=== PATIENT | male | born 1995 | race African-American/Black ===

== ENCOUNTER 2020-08-03 21:00 | Inpatient (IN) | payer BC, OTHER ==
[~2020-08-03] VITALS: Ht 188 cm; Wt 108.9 kg
[~2020-08-03 21:00] MED LIST: NOHOMEMEDICATIONS
[2020-08-03 21:20] VITALS: BP 131/89
[2020-08-03 21:42] LABS: ABSOLUTE NEUTROPHILS 15.2 thou/uL (1.4-8.2); BASOPHILS 0.3 % (0.0-2.0); EOSINOPHILS 0.7 % (0.0-3.0); HEMOGLOBIN 15.1 gm/dL (14.0-18.0); LYMPHOCYTES 8.6 % (24.0-44.0); MCH 28.4 pg (26.0-34.0); MCHC 33.5 g/dL (28.0-37.0); MCV 84.7 fL (80.0-100.0); MONOCYTES 7.1 % (1.0-8.0); PLATELET COUNT 242 thou/uL (150-400); POLYS 83.3 % (36.0-66.0); RBC 5.31 mil/uL (4.50-6.00); RDW 12.7 % (10.5-14.5); WBC 18.2 thou/uL (4.0-11.0)
[2020-08-03 22:00] LABS: ALBUMIN 4.1 g/dL (3.4-5.0); ANION GAP 8 mmol/L (7-16); BUN 13 mg/dL (7-18); CALCIUM 9.2 mg/dL (8.5-10.1); CHLORIDE 102 mmol/L (98-107); CO2 29 mmol/L (21-32); CREATININE 1.3 mg/dL (0.7-1.3); DIRECT BILIRUBIN < 0.1 mg/dL (<0.1-0.2); GLUCOSE 107 mg/dL (74-106); LIPASE 56 U/L (73-393); POTASSIUM 4.2 mmol/L (3.5-5.1); SGOT 25 U/L (15-37); SGPT 42 U/L (16-63); SODIUM 139 mmol/L (136-145); TOTAL BILIRUBIN 0.4 mg/dL (0.2-1.0); TOTAL PROTEIN 8.6 g/dL (6.4-8.2)
[2020-08-03 22:45] LABS: URINE BILIRUBIN NEGATIVE (Negative); URINE BLOOD NEGATIVE (Negative); URINE CLARITY CLEAR; URINE COLOR YELLOW; URINE GLUCOSE-RANDOM* NEGATIVE (Negative); URINE KETONES NEGATIVE (Negative); URINE LEUKOCYTES-REFLEX NEGATIVE (Negative); URINE NITRITE-REFLEX NEGATIVE (Negative); URINE PROTEIN (DIPSTICK) NEGATIVE (Negative); URINE UROBILINOGEN 0.2 E.U./dl (0.2-1.0)
[2020-08-03 23:02] VITALS: BP 134/72
[2020-08-03 23:11] VITALS: BP 135/79
[2020-08-03 23:32] VITALS: BP 139/63
--- NOTE | 2020-08-04 00:24 | NUR ---
PT WAS ADMITTED TO THE UNIT FROM THE ER IN A STABLE CONDITION.PT DENIED PAIN ON ADMISSION.EDUCATION,HX AND ASSSESSMENT COMPLETED.CELLULITIS TO HIS L LEG,RED,ABRAISON,SWOLLEN AND WARM TO TOUCH.PT ABLE TO BEAR WT TO HIS LLE,HOPS SOMETIMES TO THE BR,OFFERED URINAL PT DECLINED PRFERS TO GO TO BR.PT AFEBRILE ON ADMISSION.PT STARTED ON IV ABX AND IVF,GALLITO WELL.PT ABLE TO MAKE HIS NEEDS KNOWN.CALL LIGHT WITHIN REACH.
[2020-08-04 05:16] LABS: HEMATOCRIT 43.4 % (42.0-52.0); HEMOGLOBIN 13.9 gm/dL (14.0-18.0); MCH 27.4 pg (26.0-34.0); MCHC 32.1 g/dL (28.0-37.0); MCV 85.3 fL (80.0-100.0); RBC 5.08 mil/uL (4.50-6.00); RDW 12.7 % (10.5-14.5)
[2020-08-04 05:28] LABS: CALCIUM 8.8 mg/dL (8.5-10.1); CREATININE 1.4 mg/dL (0.7-1.3)
[2020-08-04 07:31] VITALS: BP 114/62
[2020-08-04 12:00] VITALS: BP 136/68
--- NOTE | 2020-08-04 12:26 | NUR ---
PT ADMITTED RELATED TO CELLULITIS AND LEUKOCYTOSIS. CM REVIEWED CHART AND SPOKE WITH CARE TEAM. CM MET WITH PT AND SPOUSE AT BEDSIDE THIS DAY. PT APPEARED TO BE A&O X4. CM ROLE INTRODCUED. PT INDICATED HE LIVES IN A HOUSE WITH HIS AND SON. PT INDICATED THERE ARE 3 STEPS TO ENTER AND A FULL FLIGHT TO BASEMENT. 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 PT INDICATED NO DME OR HH HX. PT INDICATED NO PCP. PT INTERESTED IN [facility] PACKET AND LIST OF PCPS HERE AT [facility]. PT CURRENTLY ON IV VANC. CARE TEAM INDICATED PT WILL NEED A COUPLE DAYS OF INPATIENT TREATMENT. CM FOLLOWING REGARDING NEEDS UPON DC.
[2020-08-04 16:34] VITALS: BP 105/60
--- NOTE | 2020-08-04 17:11 | NUR ---
ASSUMED CARE OF PT AT 0700 THIS MORNING. PT WAS ADMITTED FOR CELLULITIS IN THE LEFT LOWER LEG. LEG IS RED AND SWOLLEN, TENDER TO THE TOUCH. PT STATED TINGLING SENSATION WITH LITTLE PAIN WHILE AT REST. SEVERE PAIN WHEN STANDING AND APPLYING PRESSURE WHEN STEPPING. PT IS A/O X4, SKIN INTACT, W/D/P. NO TENTING. CR<3SEC X4, DISTAL PULSES STRONG AND REGULAR, ABD SOFT NONTENDER WITH ACTIVE BOWEL SOUNDS. EYES PERRLA, MOTOR SKILLS PRESENT. PT CAN AMBULATE TO RESTROOM WITH WALKER AND HOPPING ON RIGHT FOOT. ASSESSMENT OTHERWISE UNREMARKABLE. CALL LIGHT AND OTHER NEEDS ARE WITHIN REACH.
[2020-08-04 23:29] VITALS: BP 150/76
--- NOTE | 2020-08-05 05:00 | NUR ---
PT IS A/O X4 AND IS UP SBA TO THE BR USING A WALKER. ROOM AIR. TEMPERATURE ELEVATED. PRN TYLENOL GIVEN DIRECTED. PT STATES PAIN TO LEFT LEG DECREASES WITH ACTIVITY. CALL LIGHT IS WITHIN REACH. CALLS OUT APPROPRIATELY.
[2020-08-05 08:50] VITALS: BP 143/81
--- NOTE | 2020-08-05 13:57 | NUR ---
Received awake on bed. Due medications given as prescribed. On MS, not on telemetry; no complains and signs of chest pain, crushing sensation and heaviness. Assisted in ADLs. Vital signs stable. On regular diet- tolerating well, no nausea, no vomiting and no abdominal pain noted. Continent of bowel and bladder. With SL at L AC- on IV antibiotics. Independent with ADLs. Complained of pain, due PO PRN pain meds given as prescribed. With cellulitis at L leg- skin intact; redness noted- on IV Vancomycin. Visited by his - update given. Pt seen and examined by Dr Leslie this AM- explained ultrasound results- DVT and course of treatment. Vancomycin level taken this AM- continued IV antibiotics. Pt requesting to have additional pain meds for breakthrough pain- Dr Leslie informed. To continue monitoring patient.
[2020-08-05 17:09] VITALS: BP 135/68
[2020-08-05 19:26] VITALS: BP 129/82
--- NOTE | 2020-08-06 04:43 | NUR ---
Spoke to Dr. Coe about pt. pain and new orders to increase hydrocodone from one tab to two tabs prn (see cpoe). Pain meds given for c/o left leg pain with some relief noted.
--- NOTE | 2020-08-06 10:51 | NUR ---
ASSUMED PT CARE THIS AM. PT VSS, A&OX4. PATIENT REPORTING PAIN IS MINIMAL, NOT REQUESTING ANY PAIN MEDICATION AT THIS TIME. IV PATENT.REDNESS NOTED TO LEFT LOWER LEG. ON ROOM AIR. PATIENT UP WITH ASSIST.
[2020-08-06 17:12] VITALS: BP 126/74
[2020-08-06 20:31] VITALS: BP 134/64
--- NOTE | 2020-08-07 04:11 | NUR ---
Pt. rested quietly at intervals during the night when checked on during frequent rounds. Po pain meds given (see emar) for c/o pain to his left lower leg with some relief noted.
[2020-08-07 08:43] VITALS: BP 138/78
[2020-08-07 15:38] VITALS: BP 138/73
--- NOTE | 2020-08-07 15:45 | NUR ---
PT CARE WAS ASSUMED AT 0700 AND WAS ADMITTED 4 DAYS AGO FOR DVT AND CELLULITIS. PT IS A/O X4, EYES PERRLA, LUNGS CLEAR IN ALL THOMAS. ABD SOFT NONTENDER, CR<3SEC X4, DISTAL PULSES PRESENT 2+ X4, SLIGHT SWELLING IN THE LOWER LEFT LEG AND TENDER TO THE TOUCH. PT'S BLOOD CULTURE CAME BACK WITH GRAM +RODS. PT WILL NEED MORE ANTIBIOTIC THERAPY BEFORE BEING DISCHARGED. IV IN LEFT AC, ASSESSMENT OTHERWISE UNREMARKABLE. CALL LIGHT AND OTHER NEEDS WITHIN REACH. PT DOES GET UP AND AMBULATE WITH NO ASST NEEDED.
[2020-08-07 19:58] VITALS: BP 132/71
[2020-08-07 22:05] VITALS: BP 130/79
--- NOTE | 2020-08-08 04:40 | NUR ---
Pt. rested quietly at intervals during the night when checked on during frequent rounds. He did c/o some pain to his left lower leg and po pain med given (see emar) with some rleief noted.
[2020-08-08 05:31] LABS: HEMATOCRIT 41.5 % (42.0-52.0); HEMOGLOBIN 13.5 gm/dL (14.0-18.0); MCH 27.6 pg (26.0-34.0); MCHC 32.4 g/dL (28.0-37.0); MCV 85.1 fL (80.0-100.0); RBC 4.88 mil/uL (4.50-6.00); RDW 12.9 % (10.5-14.5); WBC 7.1 thou/uL (4.0-11.0)
[2020-08-08 05:37] LABS: CALCIUM 8.6 mg/dL (8.5-10.1); CREATININE 1.3 mg/dL (0.7-1.3); MAGNESIUM 1.7 mg/dL (1.8-2.4); POTASSIUM 4.1 mmol/L (3.5-5.1)
[2020-08-08 08:30] VITALS: BP 131/80
[2020-08-08 13:51] VITALS: BP 131/80
[2020-08-08] MEDS ORDERED: XARELTO15 MG PO (14:01)
[2020-08-08] MEDS ORDERED: ACETAMINOPHEN325 M1 PO (14:01)
[2020-08-08] MEDS ORDERED: HYDROCODON-ACE1 EAC7 PO (14:01)
[2020-08-08] MEDS ORDERED: CEFUROXIME500 MG PO (14:01)
--- NOTE | 2020-08-08 14:51 | NUR ---
CARE TEAM INICATED THAT PT IS MEDICALLY STABLE TO DC HOME THIS DAY. PT IS TO DC HOME TO SELF CARE WITH NO NEEDS. CM PROVIDED [facility]ACK[facility] AND LIST OF PCPS HERE AT [facility] FOR PT TO WORK ON GETTING ESTABLISHED WITH A PCP. NO OTHER CM INTERVENTION INDICATED. CASE CLOSED.
--- NOTE | 2020-08-08 15:18 | NUR ---
ASSUMED CARE OF PATIENT AT [facility]. ASSESSMENT CHARTED. MEDICATIONS ADMINISTERED PER EMAR. VSS. PATIENT IS A&OX4 AND ABLE TO MAKE NEEDS KNOWN. PATIENT GETS UP IMDEPENDENTLY. IN TERMS OF DVT; PATIENT VOICES PAIN ON LEG RELIEVED BY PRN PAIN ANALGESIC X1. ABX INFUSED ON L FA W NO ISSUES. PROVIDER CLEARED PATIENT FOR DISCHARGE. PATIENT GIVEN EDUCATION AND DISCHARGE PACKET, IV DISCONTINUED AND ALL OTHER NEEDS AND QUESTIONS ADRESSED. NO OTHER NEEDS NOTED. WILL CONTINUE TO MONITOR PATIENT UNTIL DISCHARGE
== END 2020-08-08 16:26 | disposition home or self-care (01) | DRG 300 ==
LOC: ER 21:00 → 4W 22:56 → EROBS 22:56 → 4W 23:13
PROVIDERS: Internal Medicine; Nurse Practitioner; ADMIT Hospitalist; ATTEND Hospitalist
DX: I82.412 Acute embolism and thrombosis of left femoral vein (principal); L03.116 Cellulitis of left lower limb; D72.829 Elevated white blood cell count, unspecified; Z79.899 Other long term (current) drug therapy; Z79.01 Long term (current) use of anticoagulants
CPT/HCPCS: 10040